=== PATIENT | male | born 1985 | race Caucasian/White ===

== ENCOUNTER → 2021-12-09 | Day surgery (SDC) | payer MEDICAID ==
[~2021-12-09] VITALS: Ht 162.5 cm; Wt 76.7 kg
[~2021-12-09] MED LIST: MOTRIN800 MG PO
[2021-12-09 07:58] VITALS: BP 123/74
[2021-12-09 08:52] VITALS: BP 122/35
[2021-12-09 09:07] VITALS: BP 114/76
[2021-12-09 09:20] VITALS: BP 114/76
== END | disposition home or self-care (01) ==
LOC: SDC 12-05 12:30
PROVIDERS: ATTEND Surgery
DX: R10.32 Left lower quadrant pain (principal); K62.1 Rectal polyp; K92.1 Melena; F17.210 Nicotine dependence, cigarettes, uncomplicated; Z79.899 Other long term (current) drug therapy

== ENCOUNTER → 2022-01-06 | Outpatient (CLI) | payer MEDICAID | END | disposition home or self-care (01) | LOC: NM 07:00 | PROVIDERS: ATTEND Surgery | DX: K21.9 Gastro-esophageal reflux disease without esophagitis (principal) ==